=== PATIENT | male | born 1990 | race Caucasian/White ===

== ENCOUNTER 2024-01-06 08:38 | Emergency (ER) | payer OTHER, SELFPAY ==
[2024-01-06 08:51] VITALS: BP 172/97
--- NOTE | 2024-01-06 09:03 | ED.GENMED ---
History of Present Illness
General
Chief Complaint: Back Pain
Time Seen by Provider: 01/06/24 09:03
Travel History
Have you had any contact with someone who has COVID-19?: No
Do you have any symptoms of coronavirus? Fever > 100 degrees, chills, cough, shortness of breath, sore throat, loss of taste or smell, muscle aches, or headache?: No
History of Present Illness
History of Present Illness:
HPI: Patient presents with back pain located over the right CVA region. At times, the pain worsens with movement and when he tried to walk today he had increased pain. He has no lower extremity motor dysfunction, there is no bowel or bladder
incontinence or retention.
EXAM:
GENERAL: Well appearing in no distress
HEENT: Moist oral mucosa
CARDIOVASCULAR: No murmurs, normal heart rate, regular rhythm, No chest wall tenderness
PULMONARY: No respiratory distress, breath sounds are clear and equal
ABDOMEN: Soft with no peritoneal signs, no tenderness
NEUROLOGIC: Excellent strength all extremities, no coordination deficits
PSYCHIATRIC: Appropriate mental status, normal insight and judgement
BACK: There is no midline T or L-spine tenderness, there is some decreased active range of motion of the thoracolumbar spine due to pain, there is borderline right CVA tenderness
EXTREMITIES: Nontender, no edema, moves all extremities equally
SKIN: Psoriatic skin changes are noted to the right elbow
TIME OF INITIAL ENCOUNTER: 9 AM
NUMBER AND COMPLEXITY OF PROBLEMS ADDRESSED AT THE ENCOUNTER
� Chronic conditions affecting care: History of depression
� Acute Exacerbation and/or Progression of Chronic Illness: This is an acute problem
� Differential Diagnosis includes: Musculoskeletal back pain, sciatica, lumbar radiculopathy, ureteral stone/colic
AMOUNT AND/OR COMPLEXITY OF DATA TO BE REVIEWED AND ANALYZED
� I performed an independent evaluation of and my interpretation is:
EKG:
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
X-rays:
Laboratory Studies:
Other:
� Review of other/old records: I look for old records�there are no old records available for review
� Clinical information was obtained by an independent historian: I spoke to the mother at bedside
� Prescriptions/Medications Considered but not given:
� Further testing considered but not performed:
RISK OF COMPLICATIONS AND/OR MORBIDITY OR MORTALITY OF PATIENT MANAGEMENT
� Social determinants of health affecting care: Lives at home
� Discussion with other providers:
� Escalation of care including admission/observation vs risk of discharge considered: Will give Toradol IM for pain. Suspect more of a musculoskeletal etiology as the pain worsens with position changes however the area of
concern is over the right CVA region�will obtain CT imaging to evaluate for stone as he describes the pain is rather severe. On reassessment at 10:40 AM, after Toradol was given, the patient feels improved�recommend Motrin at home. Given the
abnormality seen on CT imaging, I have given him the contact information for a local orthopedic loss mitigation specialist.
Phy Exam
Physical Exam
Physical Exam:
See HPI
Course
Orders/Labs/Results
Orders:
Orders
01/06/24 09:08
CT Abd/pel Without Iv Or Oral Urgent
Comment:
Reason For Exam: acute R flank pain
Ketorolac [Toradol] 30 mg IM NOW STA
Vital Signs
Initial and Last Documented VS:
Initial Vital Signs
Temp Pulse Resp BP Pulse Ox
98.2 F 86 20 172/97 93
01/06/24 08:51 01/06/24 08:51 01/06/24 08:51 01/06/24 08:51 01/06/24 08:51
Last Documented Vital Signs
Temp Pulse Resp BP Pulse Ox
98.2 F 86 20 172/97 93
01/06/24 08:51 01/06/24 08:51 01/06/24 08:51 01/06/24 08:51 01/06/24 08:51
*Critical Care Note
Total Time (30-74mins, 75-104mins- exclusive of procedures): Not Applicable
ED Attending Note
-
Portions of this chart may have been created with voice recognition software.� Occasional wrong word or��sound alike� substitutions may have occurred due to the inherent limitations of voice recognition software.
Discharge Plan
Departure
Patient Disposition: Home (Routine Discharge)
Date of Disposition: 01/06/24
Time of Disposition: 10:34
Patient with high blood pressure during this ER visit?: Yes
Discharge Problem:
Back pain
Referrals:
Jus Rehman, [Active] -
Fernando Salinas MD [Family Provider] -
Activity Restrictions/Additional Instructions:
The CAT scan of the abdomen pelvis shows no acute abnormality. Incidentally noted is a 2cm hemangioma at the vertebral body of L4. I have given the contact information for local loss mitigation specialist. Please follow-up your primary care doctor. I
recommend 3-4 [id number] ibuprofen (Motrin) every 8 hours with food for a few days. Return here if worse.
Discharge Date and Time
Print Language: SINHALA
[2024-01-06] MEDS: TORADOL 30 MG IM (09:20)
[2024-01-06 11:04] VITALS: BP 128/73
== END 2024-01-06 11:06 | disposition home or self-care (01) ==
LOC: EMR 08:38
PROVIDERS: EMERGENCY PHYSICIAN Emergency Medicine; FAMILY PHYSICIAN Internal Medicine
DX: M54.9 Dorsalgia, unspecified (principal)
CPT/HCPCS: 99284; 96372; 74176

== ENCOUNTER 2024-04-08 19:24 | Emergency (ER) | payer OTHER, SELFPAY ==
[2024-04-08 19:26] VITALS: BP 158/98; BMI 23.0
[2024-04-08] MEDS: XANAX 1 MG PO (21:18)
--- NOTE | 2024-04-08 21:23 | ED.GENMED ---
History of Present Illness
General
Chief Complaint: Anxiety
Source: patient and family
Time Seen by Provider: 04/08/24 20:49
History of Present Illness
History of Present Illness:
33-year-old male with past medical history of anxiety and depression presenting to the emergency department for evaluation after he believes he had an anxiety attack earlier this evening and states still feels like he is unable to get his anxiety
under control. He notes that his anxiety is usually well-controlled with sertraline which she takes regularly. Patient states he cannot think of anything that may have caused the anxiety attack. He denies any fevers or infectious symptoms.
Social history was noted for drinking 1-2 shots every other day, last drink was earlier this evening. Denies any history of alcohol withdrawal. No other concerns.
Past History
Past History
ED Past Medical History: Psychiatric
ED Past Surgical History: None
Social History
Tobacco: Non-smoker
Alcohol: Other (2 shots of liquor every other day)
Drug: None
Personal: Single
Living: with family
Employment: Employed
Review of Systems
Review of Systems
All Other Systems: ROS reviewed and negative except as documented in HPI and ROS
Phy Exam
Physical Exam
Physical Exam:
GENERAL: Alert , in no apparent distress
EYE: conjunctiva clear
NECK: Supple, no significant adenopathy.
ENT: o/p clr, mmm.
CARDIAC: Regular rate and rhythm
LUNGS: Clear breath sounds bilaterally, no acute respiratory distress, no wheezes/rales/rhonchi
NEUROLOGICAL: Alert and oriented , Occasionally with full body tremors that subside after a few seconds
SKIN: Warm and dry, skin intact.
MUSCULOSKELETAL: well perfused.
PSYCH: Normal and appropriate interaction but does seem anxious
Scores
Heart Failure Risk
Heart Failure Risk Score: Not Applicable
Heart Score for Chest Pain Patients
STEMI patient?: Not applicable
Withdrawal Assessment of Alcohol
Withdrawal Assessment Completed?: Not applicable
Course
Orders/Labs/Results
Orders:
Orders
04/08/24 21:10
Alprazolam [Xanax] 1 mg PO NOW STA
Vital Signs
Initial and Last Documented VS:
Initial Vital Signs
Temp Pulse Resp BP Pulse Ox
97.7 F 98 16 158/98 98
04/08/24 19:26 04/08/24 19:26 04/08/24 19:26 04/08/24 19:26 04/08/24 19:26
Last Documented Vital Signs
Temp Pulse Resp BP Pulse Ox
97.7 F 98 16 158/98 98
04/08/24 19:26 04/08/24 19:26 04/08/24 19:26 04/08/24 19:26 04/08/24 19:26
MDM/Problems Addressed
Differential Diagnosis Includes:
Exacerbation of anxiety, I have no concern for infection, possible alcohol withdrawal although this is less likely given patient states he already did have a drink this evening
MDM/Problems Addressed:
33-year-old male presenting to the emergency department for evaluation of suspected anxiety exacerbation. He took his sertraline this evening and notes that he does have a prescription for benzodiazepine but states he felt that he was unable to
take this medication. He denies any fevers. Currently noting he feels a little bit better but states still feels like his anxiety might be exacerbated at some point. Will treat with 1 mg of Xanax here and continue to monitor. Discussed getting
labs with patient however he states that he just had significant blood work done through his primary care provider and would like to defer labs at this time.
Chronic conditions affecting care: Psychiatric illness
*Pulse Oximetry
Patient hypoxic: no
*Critical Care Note
Total Time (30-74mins, 75-104mins- exclusive of procedures): Not Applicable
Patient Management
Escalation/DeEscalation of care consider admission/obs:
Patient feeling much better and requesting to be discharged home. Aware of return precautions. Recommended close follow up with PCP
ED Attending Note
-
Portions of this chart may have been created with voice recognition software.� Occasional wrong word or��sound alike� substitutions may have occurred due to the inherent limitations of voice recognition software.
Discharge Plan
Departure
Patient Disposition: Home (Routine Discharge)
Date of Disposition: 04/08/24
Time of Disposition: 21:48
Patient with high blood pressure during this ER visit?: Yes
Discharge Problem:
Anxiety
Instructions: Anxiety, Adult (DC)
Prescriptions:
No Action
sertraline 25 mg Tablet
25 mg PO DAILY
Referrals:
Fernando Salinas MD [Family Provider] -
Interventions
Interventions:
*Risk Screen - Suicide Last Done: 04/08/24 19:26
*General Assessment Last Done: 04/08/24 20:21
*Neglect/Abuse Screening Last Done: 04/08/24 19:26
ED- Fall Risk Assessment Last Done: 04/08/24 20:24
*ED COVID-19 Vaccine History Last Done: 04/08/24 20:21
ED-Psychological Assessment Last Done: 04/08/24 20:21
Discharge Date and Time
Print Language: UPPER SORBIAN
[2024-04-08 22:12] VITALS: BP 122/73
== END 2024-04-08 22:15 | disposition home or self-care (01) ==
LOC: EMR 19:24
PROVIDERS: EMERGENCY PHYSICIAN Emergency Medicine; FAMILY PHYSICIAN Internal Medicine
DX: F41.9 Anxiety disorder, unspecified (principal); F32.A Depression, unspecified
CPT/HCPCS: 99283